=== PATIENT | female | born 1940 | race Caucasian/White ===

== ENCOUNTER 2018-08-08 11:01 | Outpatient (CLI) | payer MEDICARE ==
[2018-08-08 12:10] LABS: PTT 33.2 SEC (22.9-36.1); Prothrombin Time 13.4 SEC (12.0-14.7)
[2018-08-08 12:17] LABS: Hemoglobin 13.7 g/dL (12.0-16.0); Mean Corpuscular HGB CONC 33.4 g/dL (32.0-36.0); Mean Corpuscular Hemoglobin 32.8 pg (27.0-31.0); Mean Corpuscular Volume 98.2 fL (78.0-98.0); Mean Platelet Volume 10.4 fL (7.4-10.4); Platelet Count 161 thou/uL (130-400); RBC Distribution Width 11.8 % (11.5-14.5); Red Blood Cell (RBC) Count 4.19 mill/uL (4.20-5.40); White Blood Cell (WBC) Count 6.8 thou/uL (4.8-10.8)
[2018-08-08 12:18] LABS: Anion Gap 14 mmol/L (10-20); BUN (Urea Nitrogen) 27 mg/dL (9.8-20.1); Calc. Creatinine Clearance 0 mL/min (70-130); Calcium 9.6 mg/dL (7.8-10.44); Carbon Dioxide 25 mmol/L (23-31); Chloride 104 mmol/L (98-107); Estimated GFR-MDRD 55; Glucose 98 mg/dL (83-110); Potassium 3.8 mmol/L (3.5-5.1); Sodium 139 mmol/L (136-145)
== END 2018-08-08 11:02 | disposition home or self-care (01) ==
LOC: LABBT 11:01
PROVIDERS: ATTEND Surgery
DX: Z01.818 Encounter for other preprocedural examination (principal); M48.061 Spinal stenosis, lumbar region without neurogenic claudication; M54.16 Radiculopathy, lumbar region
CPT/HCPCS: 80048; 85027; 85610; 85730; 93005; 93010

== ENCOUNTER 2019-05-30 22:10 | Inpatient (IN) | payer MEDICARE ==
[2019-05-31] MEDS ORDERED: Heparin 10,000 UNITS/ 10 ML VIAL SLOW IVP SCH (01:30)
[2019-05-31 01:49] VITALS: BMI 25.3
[2019-05-31 02:29] LABS: Hemoglobin 13.3 g/dL (12.0-16.0); Platelet Count 162 thou/uL (130-400)
[2019-05-31 02:34] LABS: PTT 28.9 SEC (22.9-36.1); Prothrombin Time 13.3 SEC (12.0-14.7)
[2019-05-31 02:50] LABS: ALT (SGPT) 13 U/L (8-55); AST (SGOT) 19 U/L (5-34); Albumin 3.5 g/dL (3.4-4.8); Alkaline Phosphatase 75 U/L (40-110); Anion Gap 12 mmol/L (10-20); BUN (Urea Nitrogen) 19 mg/dL (9.8-20.1); Bilirubin, Total 0.5 mg/dL (0.2-1.2); Calc. Creatinine Clearance 63 mL/min (70-130); Carbon Dioxide 27 mmol/L (23-31); Chloride 104 mmol/L (98-107); Estimated GFR-MDRD 65; Globulin 2.8 g/dL (2.4-3.5); Glucose 95 mg/dL (83-110); Potassium 3.4 mmol/L (3.5-5.1); Protein, Total 6.3 g/dL (6.0-8.3); Sodium 140 mmol/L (136-145)
[2019-05-31] MEDS: Heparin 25,000 units/D5W 500 ML IVPB SCH (02:52)
[2019-05-31] MEDS ORDERED: ALPRAZolam 0.5 MG TAB PO PRN (06:30)
[2019-05-31] MEDS ORDERED: ALPRAZolam 0.25 MG TAB PO PRN (06:37)
[2019-05-31] MEDS: traMADol HCl 50 MG TAB PO PRN ×2 (06:43→14:30)
[2019-05-31] MEDS: NS 0.9% w/ 20 MEQ KCL 1,000 ML/1,000 ML BAG IV SCH ×4 (06:44→16:50)
[2019-05-31] MEDS: Aspirin 81 mg Enteric Coated Tablet PO SCH (07:50)
[2019-05-31] MEDS: Carvedilol 3.125 MG TAB PO SCH ×2 (07:50→16:19)
--- NOTE | 2019-05-31 08:01 | CON ---
DATE OF CONSULTATION: 05/31/2019 HISTORY OF PRESENT ILLNESS: Ms. Azar is a 78-year-old woman, who was transferred from the [place] [facility]. She has known longstanding peripheral vascular disease. She presented with a left leg and foot rest pain. This had presented approximately 3 to 4 days previous and it gotten worse over time. She was worried that she may "have a clot." She was evaluated in [place] with a CT angiogram. This has shown iliofemoral disease on the left, which is certainly contributing to her symptomatology. She does have a history of atrial fibrillation, but looking at her CT angiogram it is heavily calcified throughout and this is probably a chronic issue that has slowly worsened from an inflow standpoint. She was placed on a heparin drip and is currently asymptomatic. She continues to smoke and has really no intention to stop. PAST MEDICAL HISTORY: 1. Peripheral vascular disease. 2. Anxiety. 3. Atrial fibrillation. 4. Arthritis. 5. Hypertension. 6. Raynaud's phenomenon. 7. Sick sinus syndrome. 8. COPD. 9. Chronic back pain. PAST SURGICAL HISTORY: 1. Pacemaker. 2. Ovarian cyst removal. SOCIAL HISTORY: She smokes approximately half pack of cigarettes a day. REVIEW OF SYSTEMS: Ten-point review of systems is performed and is negative except as above. PHYSICAL EXAMINATION: GENERAL: This is a well-developed, well-nourished woman, resting comfortably. VITAL SIGNS: Her height is 5 feet and 7 inches, weight is 161 pounds. Temperature is 98.1, pulse is 59 and regular, and blood pressure is 149/71. HEENT: Sclerae are nonicteric. Pupils are equal and round bilaterally. NECK: Supple without adenopathy. I cannot auscultate a bruit. CHEST: Clear bilaterally. ABDOMEN: Soft and nontender. EXTREMITIES: There is no edema. Both extremities are pale. She does have capillary refill at about 2 seconds on the right and 4 seconds on the left. VASCULAR: The right common femoral pulse is palpable. She has a good dorsalis pedis monophasic signal on the right. On the left, I cannot palpate a femoral pulse. She does have a monophasic Doppler signal in the femoral and posterior tibial areas. ASSESSMENT AND PLAN: Chronic peripheral vascular disease with acute exacerbation. Her symptomatology has been settled with a heparin drip. We will continue this. Dr. Diallo has evaluated her films and has made plans to perform femoral endarterectomy and iliac stenting on Sunday. Job ID: [id number]
--- NOTE | 2019-05-31 18:41 | HP ---
PRIMARY CARE PHYSICIAN: Dr. Néstor Carbajal. CHIEF COMPLAINT: Left leg pain and claudication. HISTORY OF PRESENT ILLNESS: Ms. Azar is a 78-year-old female with past medical history of peripheral vascular disease, atrial fibrillation, hypertension, sick sinus syndrome, COPD, chronic back pain, presented to the [place] ED late last night due to worsening leg pain over the last 2 days, she states that the left leg and foot became quite painful and throbbing over the last 2 days. She states that it is worse when she is up and walking, she underwent a CT angiogram, which showed iliofemoral disease on the left, she was started on a heparin drip and transferred to [facility] for further management, Dr. Diallo was then consulted. Dr. Diallo was planning for femoral endarterectomy and iliac stenting on Sunday. Currently, the patient denies any fever, chills, headache, blurred vision, dizziness, chest pain, palpitations, shortness of breath, abdominal pain, nausea, or vomiting. Currently, the pain is much improved, but the patient really has not been up and walking around since coming into the ED. REVIEW OF SYSTEMS: All other systems reviewed and found to be negative unless mentioned in HPI. PAST MEDICAL HISTORY: Peripheral vascular disease, atrial fibrillation, arthritis, hypertension, Raynaud syndrome, sick sinus syndrome, COPD, and chronic back pain. PAST SURGICAL HISTORY: Pacemaker placement with AICD, ovarian cyst removed, IR myelogram lumbar spine. PSYCHIATRIC HISTORY: Includes anxiety. SOCIAL HISTORY: The patient denies alcohol or illicit drug use, however, does admit to smoking about a half pack per day. KNOWN ALLERGIES: Adhesive, penicillin, statins, and sulfa. CURRENT HOME MEDICATIONS: 1. Albuterol sulfate 2.5 mg neb q.6 hours as needed for shortness of breath. 2. Budesonide/formoterol 2 puffs inhalation b.i.d. 3. Carvedilol 3.125 mg b.i.d. 4. Docusate 100 mg b.i.d. 5. Ipratropium bromide 2.5 mL nebulized t.i.d. as needed for shortness of breath. 6. Lactulose 10 g p.o. b.i.d. as needed for constipation. 7. Xyzal 5 mg p.o. p.r.n. allergies. 8. Lidocaine 5% patch 1 patch transdermal daily as needed for back pain. 9. Montelukast 10 mg daily. 10. Centrum Silver Multivitamin daily. 11. [place]-3 fatty acid/fish oil 1000 mg daily. 12. Xarelto 15 mg daily. 13. Simethicone 180 mg b.i.d. 14. Alprazolam 0.25 mg as needed for anxiety. 15. Furosemide 40 mg b.i.d. 16. Potassium chloride 20 mEq b.i.d. 17. Tramadol 50 mg q.12 hours as needed for pain. PHYSICAL EXAMINATION: VITAL SIGNS: Blood pressure 135/80, pulse 71, respirations 18, temperature 98.3, O2 saturation 99% on room air. GENERAL: The patient is awake, alert, and oriented x3. She is currently lying comfortably in bed and in no acute distress. HEENT: Atraumatic, normocephalic. Pupils are round and reactive to light. Extraocular muscles intact. Moist mucous membranes noted. NECK: Soft and supple. Trachea midline. CARDIOVASCULAR: Positive S1 and S2. Regular rate and rhythm. No murmur auscultated. RESPIRATORY: Clear to auscultation bilaterally. No wheezes, rales, or rhonchi. ABDOMEN: Soft, nontender. Bowel sounds present. EXTREMITIES: No edema noted. Both extremities are pale. Pedal pulses are 2+ on the right and 4+ on the left. NEUROLOGIC: Cranial nerves 2 through 12 grossly intact. No focal deficits noted. Speech intact and normal. Gait not assessed. SKIN: Warm, dry and intact. PSYCHIATRIC: Good mood and affect. LABORATORY DATA: Hemoglobin 13.3, hematocrit 38.7, and platelet 162. PT 13.3, INR 1.0, and PTT 77.8. Sodium 140, potassium 3.4, anion gap 12, BUN 19, creatinine 0.84, estimated GFR 65, glucose 95, magnesium 2.2, AST 19, and ALT 13. DIAGNOSTIC IMAGING: None. ASSESSMENT AND PLAN: 1. Chronic peripheral vascular disease with acute exacerbation. Dr. Diallo is consulted at this time and plans for a left femoral endarterectomy with iliac stenting on Sunday. The patient will be treated with an IV heparin drip . Hemoglobin and platelets will be closely monitored. 2. History of hypertension. Continue home regimen and monitor blood pressure and other vital signs closely. 3. History of atrial fibrillation. 4. History of sick sinus syndrome with pacemaker and automatic implantable cardioverter-defibrillator in place. 5. History of chronic obstructive pulmonary disease, continue home regimen, currently stable at this time. 6. Chronic back pain, continue home pain regimen. 7. Deep venous thrombosis and gastrointestinal prophylaxis. 8. Code status, full code. 9. Surrogate decision maker is her , Krishna. Disposition pending further workup, clinical findings, and her surgery with Dr. Diallo on Sunday. Job ID: [id number]
[2019-05-31] MEDS: Furosemide 40 MG TAB PO SCH (20:34)
[2019-05-31] MEDS: Potassium Chloride 20 MEQ TAB PO SCH (20:34)
[2019-05-31] MEDS ORDERED: FLU VACC TS2019-20(65YR UP)/PF 180 MCG/0.5 ML SYRINGE IM ONE (21:00)
[2019-06-01 03:44] LABS: #Basophils 0.1 thou/uL (0.0-0.2); #Eosinphils 0.7 thou/uL (0.0-0.7); #Lymphocytes 2.6 thou/uL (1.20-3.40); #Monocytes 0.6 thou/uL (0.11-0.59); #Neutrophils 3.2 thou/uL (1.40-6.50); %Basophils 1.1 % (0.0-1.0); %Eosinophils 9.4 % (0.0-10.0); %Lymphocytes 36.4 % (21.0-51.0); %Monocytes 8.1 % (0.0-10.0); Hemoglobin 12.9 g/dL (12.0-16.0); Mean Corpuscular HGB CONC 33.9 g/dL (32.0-36.0); Mean Corpuscular Hemoglobin 33.5 pg (27.0-31.0); Mean Platelet Volume 9.7 fL (7.4-10.4); Platelet Count 202 thou/uL (130-400); RBC Distribution Width 11.9 % (11.5-14.5); Red Blood Cell (RBC) Count 3.86 mill/uL (4.20-5.40); White Blood Cell (WBC) Count 7.2 thou/uL (4.8-10.8)
[2019-06-01] MEDS: Heparin 25,000 units/D5W 500 ML IVPB SCH (03:50)
[2019-06-01 04:07] LABS: Anion Gap 10 mmol/L (10-20); BUN (Urea Nitrogen) 16 mg/dL (9.8-20.1); Calc. Creatinine Clearance 55 mL/min (70-130); Calcium 8.7 mg/dL (7.8-10.44); Carbon Dioxide 28 mmol/L (23-31); Chloride 107 mmol/L (98-107); Estimated GFR-MDRD 56; Glucose 91 mg/dL (83-110); Magnesium 2.1 mg/dL (1.6-2.6); Potassium 3.5 mmol/L (3.5-5.1); Sodium 141 mmol/L (136-145)
[2019-06-01] MEDS: NS 0.9% w/ 20 MEQ KCL 1,000 ML/1,000 ML BAG IV SCH ×2 (07:12→19:28)
[2019-06-01] MEDS: Aspirin 81 mg Enteric Coated Tablet PO SCH (07:48)
[2019-06-01] MEDS: traMADol HCl 50 MG TAB PO PRN ×2 (07:48→16:21)
[2019-06-01] MEDS: Furosemide 40 MG TAB PO SCH ×2 (07:50→20:17)
[2019-06-01] MEDS: Carvedilol 3.125 MG TAB PO SCH ×2 (07:50→16:21)
[2019-06-01] MEDS: Potassium Chloride 20 MEQ TAB PO SCH ×2 (07:50→20:17)
--- NOTE | 2019-06-01 18:50 | PDOC.HOSPP ---
- Subjective Encounter Date: 06/01/19 Encounter Time: 18:48 Subjective: Pt seen for followup re: limb ischemia. Reports LLE pain is better. - Objective Vital Signs & Weight: Vital Signs (12 hours) Temp Pulse Resp BP Pulse Ox 06/01/19 15:05 98.1 F 60 16 140/63 98 06/01/19 11:18 98.1 F 60 16 165/81 H 97 06/01/19 07:32 98.0 F 60 16 158/85 H 98 Weight Weight 161 lb 12.8 oz I&O: 05/31/19 06/01/19 06/02/19 06:59 06:59 06:59 Intake Total 3180 1440 Balance 3180 1440 Result Diagrams: 06/01/19 03:04 06/01/19 03:04 Additional Labs: Labs and MARs reviewed by co Hospitalist ROS - Review of Systems Cardiovascular: reports: other. denies: chest pain, palpitations, orthopnea, paroxysmal noc. dyspnea, edema, light headedness Gastrointestinal: denies: nausea, vomiting, abdominal pain, diarrhea, constipation, melena, hematochezia Musculoskeletal: reports: leg pain - Medication Medications: Active Medications Generic Name Dose Route Start Last Admin Trade Name Freq PRN Reason Stop Dose Admin Alprazolam 0.25 mg 05/31/19 06:37 05/31/19 06:45 Xanax PO 0.25 mg Q8H PRN Administration Anxiety Aspirin 81 mg 05/31/19 09:00 06/01/19 07:48 Ecotrin PO 81 mg DAILY ELIAN Administration Carvedilol 3.125 mg 05/31/19 08:00 06/01/19 16:21 Coreg PO 3.125 mg BID-WM ELIAN Administration Furosemide 40 mg 05/31/19 21:00 06/01/19 07:50 Lasix PO 40 mg BID ELIAN Administration Heparin Sodium/Dextrose 500 mls @ 0 mls/hr 05/31/19 01:30 06/01/19 03:50 Heparin 25,000 Units/D5w 500 Ml IVPB 500 mls INF ELIAN Administration Protocol Per Protocol Potassium Chloride/Sodium Chloride 1,000 ml in 1,000 mls @ 75 mls/hr 05/31/19 05:00 06/01/19 07:12 Ns 0.9% W/ 20 Meq Kcl IV Not Given .[id number] ELIAN Potassium Chloride 20 meq 05/31/19 21:00 06/01/19 07:50 K-Dur PO 20 meq BID ELIAN Administration Sodium Chloride 10 ml 05/31/19 09:00 06/01/19 07:51 Flush - Normal Saline IVF Not Given Q12HR ELIAN Tramadol HCl 50 mg 05/31/19 06:29 06/01/19 16:21 Ultram PO 50 mg Q6H PRN Administration Pain - Exam General Appearance: NAD Eye: anicteric sclera ENT: moist mucosa Neck: supple Heart: RRR Respiratory: CTAB, no rales Gastrointestinal: soft, non-tender Skin - other findings: poor pulses LLE Psychiatric: normal affect, normal behavior Hosp A/P (1) Limb ischemia Code(s): I99.8 - OTHER DISORDER OF CIRCULATORY SYSTEM Status: Acute (2) HTN (hypertension) Code(s): I10 - ESSENTIAL (PRIMARY) HYPERTENSION Status: Chronic (3) COPD (chronic obstructive pulmonary disease) Status: Chronic (4) Sick sinus syndrome Code(s): I49.5 - SICK SINUS SYNDROME Status: Chronic - Plan out of bed/ambulate On heparin drip, for procedure tomorrow. Monitor vital signs, titrate antihypertensives as needed. s/p PPM placement.
[2019-06-02] MEDS ORDERED: Sodium Chloride 0.9% 1,000 ML IV SCH (02:00)
[2019-06-02 02:32] LABS: Hemoglobin 12.7 g/dL (12.0-16.0); Platelet Count 203 thou/uL (130-400)
[2019-06-02 02:33] LABS: #Basophils 0.1 thou/uL (0.0-0.2); #Eosinphils 0.6 thou/uL (0.0-0.7); #Lymphocytes 1.9 thou/uL (1.20-3.40); #Monocytes 0.4 thou/uL (0.11-0.59); #Neutrophils 2.9 thou/uL (1.40-6.50); %Basophils 0.9 % (0.0-1.0); %Eosinophils 9.9 % (0.0-10.0); %Lymphocytes 32.1 % (21.0-51.0); %Monocytes 7.6 % (0.0-10.0); %Neutrophils 49.5 % (42.0-75.0); Hemoglobin 12.8 g/dL (12.0-16.0); Mean Corpuscular HGB CONC 34.1 g/dL (32.0-36.0); Mean Corpuscular Hemoglobin 33.8 pg (27.0-31.0); Mean Corpuscular Volume 99.1 fL (78.0-98.0); Platelet Count 209 thou/uL (130-400); RBC Distribution Width 11.9 % (11.5-14.5); Red Blood Cell (RBC) Count 3.78 mill/uL (4.20-5.40); White Blood Cell (WBC) Count 5.8 thou/uL (4.8-10.8)
[2019-06-02 02:55] LABS: Anion Gap 14 mmol/L (10-20); BUN (Urea Nitrogen) 17 mg/dL (9.8-20.1); Calc. Creatinine Clearance 52 mL/min (70-130); Calcium 8.7 mg/dL (7.8-10.44); Carbon Dioxide 25 mmol/L (23-31); Chloride 105 mmol/L (98-107); Estimated GFR-MDRD 52; Glucose 90 mg/dL (83-110); Potassium 3.7 mmol/L (3.5-5.1); Sodium 140 mmol/L (136-145)
[2019-06-02] MEDS: Carvedilol 3.125 MG TAB PO SCH ×2 (06:07→17:34)
[2019-06-02] MEDS: traMADol HCl 50 MG TAB PO PRN ×2 (06:07→17:33)
[2019-06-02] MEDS ORDERED: Protamine Sulfate 250 MG/25 ML VIAL ONE (06:40)
[2019-06-02] MEDS ORDERED: Heparin 5,000 UNITS/ML VIAL ONE (06:40)
[2019-06-02] MEDS ORDERED: Protamine Sulfate 50 MG/5 ML VIAL ONE (06:41)
[2019-06-02] MEDS ORDERED: Nitroglycerin 50 MG/250 ML BOT 0 ML ONE (06:44)
[2019-06-02] MEDS ORDERED: PHENYLEPHRINE-NS 100 MCG/ML 10 ML SYRINGE ONE ×2 (06:44→14:43)
[2019-06-02] MEDS: Aspirin 81 mg Enteric Coated Tablet PO SCH (07:31)
[2019-06-02] MEDS: Furosemide 40 MG TAB PO SCH (07:31)
[2019-06-02] MEDS: Potassium Chloride 20 MEQ TAB PO SCH (07:31)
[2019-06-02] MEDS ORDERED: Clindamycin/D5W 900 mg/50 ml Premix Bag ONE (08:51)
[2019-06-02] MEDS ORDERED: Levofloxacin 500 mg/D5W 100 ml Premix Bag ONE (08:52)
[2019-06-02] MEDS ORDERED: Fentanyl 100 MCG/2 ML VIAL ONE ×4 (09:11→15:50)
[2019-06-02] MEDS ORDERED: Phenylephrine HCL 10 MG/ML VIAL ONE ×2 (09:12→10:42)
[2019-06-02] MEDS ORDERED: Norepinephrine 4 MG/4 ML VIAL ONE (09:12)
[2019-06-02] MEDS ORDERED: Clindamycin/D5W 900 MG in Premix Bag 1 BAG IVPB SCH (10:00)
[2019-06-02] MEDS ORDERED: Heparin 10,000 UNITS/1 ML VIAL ONE (11:16)
[2019-06-02] MEDS ORDERED: hydrALAZINE 20 MG/ML VIAL SLOW IVP PRN (12:49)
[2019-06-02] MEDS ORDERED: Promethazine HCl 25 MG/ML VIAL ONE (13:16)
[2019-06-02] MEDS ORDERED: Fentanyl 100 MCG/2 ML VIAL SLOW IVP PRN (14:32)
[2019-06-02] MEDS ORDERED: hydrALAZINE 20 MG/ML VIAL ONE (14:32)
[2019-06-02] MEDS ORDERED: HYDROcodone/Acetaminophen 5/325 mg Tablet PO PRN (14:32)
[2019-06-02] MEDS ORDERED: Lidocaine 1% PF 5 ML VIAL ONE (14:43)
[2019-06-02] MEDS ORDERED: Heparin 10,000 UNITS/ 10 ML VIAL ONE (14:43)
[2019-06-02] MEDS ORDERED: Labetalol HCl 100 MG/20 ML VIAL ONE (14:43)
[2019-06-02] MEDS ORDERED: ePHEDrine 50 MG/ML VIAL ONE (14:43)
[2019-06-02] MEDS ORDERED: Rocuronium Bromide 10 MG/ML (10ML VIAL) ONE (14:43)
[2019-06-02] MEDS ORDERED: Ondansetron PF 4 MG/2 ML Vial ONE (14:43)
[2019-06-02] MEDS ORDERED: Dexamethasone 20 MG/5 ML VIAL ONE (14:43)
[2019-06-02] MEDS ORDERED: Glycopyrrolate 0.2 MG/ML 5 ML SYRINGE ONE (14:43)
[2019-06-02] MEDS ORDERED: PROPOFOL 200 MG/20 ML VIAL ONE (14:43)
[2019-06-02] MEDS ORDERED: Promethazine HCl 25 MG/ML VIAL SLOW IVP PRN (15:07)
[2019-06-02] MEDS ORDERED: Ondansetron HCl/PF 4 MG/2 ML Vial IVP PRN (15:07)
[2019-06-02] MEDS ORDERED: Promethazine HCl 25 MG/ML VIAL IM PRN (15:07)
[2019-06-02] MEDS: HYDROcodone/Acetaminophen 5/325 mg Tablet PO PRN ×2 (18:13→22:11)
--- NOTE | 2019-06-02 18:24 | PDOC.HOSPP ---
- Subjective Encounter Date: 06/02/19 Encounter Time: 09:00 Subjective: Pt seen for followup re: limb ischemia. Leg pain is better. - Objective Vital Signs & Weight: Vital Signs (12 hours) Temp Pulse Resp BP Pulse Ox 06/02/19 16:25 97.9 F 61 16 134/70 95 06/02/19 07:39 97.9 F 61 19 129/79 95 Weight Weight 161 lb 12.8 oz I&O: 06/01/19 06/02/19 06/03/19 06:59 06:59 06:59 Intake Total 3180 1440 719.2 Output Total 150 Balance 3180 1440 569.2 Result Diagrams: 06/02/19 02:17 06/02/19 02:17 Additional Labs: Labs and MARs reviewed by [place] Hospitalist ROS - Review of Systems Respiratory: denies: cough, dry, shortness of breath, hemoptysis, SOB with excertion, pleuritic pain, sputum, wheezing Cardiovascular: denies: chest pain, palpitations, orthopnea, paroxysmal noc. dyspnea, edema, light headedness Musculoskeletal: reports: leg pain - Medication Medications: Active Medications Generic Name Dose Route Start Last Admin Trade Name Freq PRN Reason Stop Dose Admin Hydrocodone Bitart/Acetaminophen 1 tab 06/02/19 14:32 06/02/19 18:13 [place] 5/325 PO 1 tab Q4H PRN Administration Pain Alprazolam 0.25 mg 05/31/19 06:37 05/31/19 06:45 Xanax PO 0.25 mg Q8H PRN Administration Anxiety Aspirin 81 mg 05/31/19 09:00 06/02/19 07:31 Ecotrin PO Not Given DAILY ELIAN Carvedilol 3.125 mg 05/31/19 08:00 06/02/19 17:34 Coreg PO 3.125 mg BID-WM ELIAN Administration Sodium Chloride 1,000 mls @ 50 mls/hr 06/02/19 02:00 06/02/19 02:32 Normal Saline 0.9% IV 06/02/19 21:59 1,000 mls .Q20H ELIAN Administration Sodium Chloride 10 ml 05/31/19 09:00 06/02/19 07:31 Flush - Normal Saline IVF Not Given Q12HR ELIAN Tramadol HCl 50 mg 05/31/19 06:29 06/02/19 17:33 Ultram PO 50 mg Q6H PRN Administration Pain - Exam General Appearance: NAD Eye: anicteric sclera ENT: moist mucosa Neck: supple Heart: RRR Respiratory: CTAB, no wheezes Gastrointestinal: soft, non-tender Musculoskeletal: no muscle wasting Psychiatric: normal affect, normal behavior Hosp A/P (1) Limb ischemia Code(s): I99.8 - OTHER DISORDER OF CIRCULATORY SYSTEM Status: Acute (2) HTN (hypertension) Code(s): I10 - ESSENTIAL (PRIMARY) HYPERTENSION Status: Chronic (3) COPD (chronic obstructive pulmonary disease) Status: Chronic (4) Sick sinus syndrome Code(s): I49.5 - SICK SINUS SYNDROME Status: Chronic - Plan For CV surgery procedure today. HTN controlled. s/p PPM placement.
[2019-06-03] MEDS: HYDROcodone/Acetaminophen 5/325 mg Tablet PO PRN ×3 (05:17→20:40)
--- NOTE | 2019-06-03 08:24 | OP ---
DATE OF PROCEDURE: 06/02/2019 PREOPERATIVE DIAGNOSIS: Ischemic rest pain, left foot. POSTOPERATIVE DIAGNOSIS: Ischemic rest pain, left foot. PROCEDURES PERFORMED: Left common femoral endarterectomy with pericardial patch angioplasty and intraoperative stent placement in the left external iliac artery using a 6 x 60 stent posted with 5 mm balloon. DESCRIPTION OF PROCEDURE: After adequate anesthesia had been obtained, ultrasound was used to guide in the incision, and after prepping and draping, an incision was made in the left groin. Carried down through the subcutaneous tissues. There was no palpable pulse, but the common femoral artery was identified and the origins of bifurcating deep femoral artery were controlled. Following this, dissection was then carried up under the inguinal ligament proximal to the circumflex femoral vessels. Circumflex femoral vessels were controlled with ties and not divided. After 7500 units of heparin, needle was inserted into the proximal most common femoral artery and a guidewire advanced under fluoroscopy. A 7-[place] dilator and sheath were placed, following which angiography was done showing a high-grade stenosis at the origin of the left external iliac artery and then more moderate stenosis more distally. A 6 x 60 stent was then deployed riding slightly high proximally. It was posted with 5 mm balloon. Completion angiography showed a good result proximally. Distally, there was about a 50% stenosis. However, I was concerned about stenting it intraoperatively due to the need for a clamp being placed in the distal left external iliac artery and the chance that I might clamp the stent if another stent was overriding the current one. For this reason, the sheath and wire were removed. Clamp applied to the external and profunda femoral artery and sutures pulled up on the branch vessels. Arteriotomy was performed and there was some thrombus in the common femoral artery suggesting that it had thrombosed from high-grade stenosis. Endarterectomy was performed with a nice tapering in the profunda femoral branches and reasonably good tapering proximally. A bovine patch was then used to close the arteriotomy with a running 6-0 Prolene suture. Flow was then restored. Following which, protamine was given systemically and hemostasis obtained. Wounds were then closed with [id number] interrupted Vicryl sutures, two layers in this skin were then closed, and the patient was taken to the recovery room with pink foot. Job ID: [id number]
[2019-06-03] MEDS: Aspirin 81 mg Enteric Coated Tablet PO SCH (08:35)
[2019-06-03] MEDS: Polyethylene Glycol 3350 17 GM Packet PO SCH (08:35)
[2019-06-03] MEDS: Carvedilol 3.125 MG TAB PO SCH ×2 (08:35→18:46)
[2019-06-03] MEDS ORDERED: Clopidogrel Bisulfate 75 MG TAB PO SCH (09:00)
[2019-06-03] MEDS ORDERED: FLU VACC TS2019-20(65YR UP)/PF 180 MCG/0.5 ML SYRINGE IM ONE (09:00)
[2019-06-03 10:35] LABS: #Eosinphils 0.3 thou/uL (0.0-0.7); #Lymphocytes 1.6 thou/uL (1.20-3.40); #Monocytes 0.8 thou/uL (0.11-0.59); #Neutrophils 6.4 thou/uL (1.40-6.50); %Basophils 0.1 % (0.0-1.0); %Eosinophils 2.9 % (0.0-10.0); %Lymphocytes 17.7 % (21.0-51.0); %Monocytes 8.4 % (0.0-10.0); %Neutrophils 70.8 % (42.0-75.0); Hemoglobin 12.9 g/dL (12.0-16.0); Mean Corpuscular Hemoglobin 33.4 pg (27.0-31.0); Mean Platelet Volume 9.4 fL (7.4-10.4); Platelet Count 201 thou/uL (130-400); Red Blood Cell (RBC) Count 3.86 mill/uL (4.20-5.40)
[2019-06-03 10:58] LABS: Anion Gap 15 mmol/L (10-20); BUN (Urea Nitrogen) 14 mg/dL (9.8-20.1); Calc. Creatinine Clearance 47 mL/min (70-130); Carbon Dioxide 26 mmol/L (23-31); Chloride 102 mmol/L (98-107); Estimated GFR-MDRD 47; Glucose 75 mg/dL (83-110); Potassium 3.7 mmol/L (3.5-5.1); Sodium 139 mmol/L (136-145)
[2019-06-03] MEDS: traMADol HCl 50 MG TAB PO PRN (13:31)
--- NOTE | 2019-06-03 14:17 | PDOC.HOSPP ---
- Subjective Encounter Date: 06/03/19 Encounter Time: 08:20 Subjective: Pt seen for followup re: ischemic limb. Feels better. Slept well. - Objective Vital Signs & Weight: Vital Signs (12 hours) Temp Pulse Resp BP Pulse Ox 06/03/19 11:40 98.1 F 59 L 14 120/63 94 L 06/03/19 07:48 97.5 F L 60 10 L 143/65 H 95 06/03/19 03:28 98.1 F 60 16 113/58 L 93 L Weight Weight 161 lb 12.8 oz I&O: 06/02/19 06/03/19 06/04/19 06:59 06:59 06:59 Intake Total 1440 1669.2 Output Total 1050 Balance 1440 619.2 Result Diagrams: 06/03/19 10:17 06/03/19 10:17 Additional Labs: Labs and MARs reviewed by nm Hospitalist ROS - Review of Systems Cardiovascular: denies: chest pain, palpitations, orthopnea, paroxysmal noc. dyspnea, edema, light headedness Gastrointestinal: denies: nausea, vomiting, abdominal pain, diarrhea, constipation, melena, hematochezia - Medication Medications: Active Medications Generic Name Dose Route Start Last Admin Trade Name Freq PRN Reason Stop Dose Admin Hydrocodone Bitart/Acetaminophen 1 tab 06/02/19 14:32 06/03/19 10:34 [place] 5/325 PO 1 tab Q4H PRN Administration Pain Alprazolam 0.25 mg 05/31/19 06:37 05/31/19 06:45 Xanax PO 0.25 mg Q8H PRN Administration Anxiety Aspirin 81 mg 05/31/19 09:00 06/03/19 08:35 Ecotrin PO 81 mg DAILY ELIAN Administration Carvedilol 3.125 mg 05/31/19 08:00 06/03/19 08:35 Coreg PO 3.125 mg BID-WM ELIAN Administration Polyethylene Glycol 17 gm 06/03/19 09:00 06/03/19 08:35 Miralax PO 17 gm DAILY ELIAN Administration Sodium Chloride 10 ml 05/31/19 09:00 06/03/19 08:38 Flush - Normal Saline IVF 10 ml Q12HR ELIAN Administration Tramadol HCl 50 mg 05/31/19 06:29 06/03/19 13:31 Ultram PO 50 mg Q6H PRN Administration Pain - Exam General Appearance: NAD, awake alert Eye: anicteric sclera Neck: supple, symmetric Heart: RRR Respiratory: CTAB, no rales Gastrointestinal: soft, non-tender Extremities: no clubbing Neurological: no weakness Psychiatric: normal affect, normal behavior Hosp A/P (1) Limb ischemia Code(s): I99.8 - OTHER DISORDER OF CIRCULATORY SYSTEM Status: Acute (2) HTN (hypertension) Code(s): I10 - ESSENTIAL (PRIMARY) HYPERTENSION Status: Chronic (3) COPD (chronic obstructive pulmonary disease) Status: Chronic (4) Sick sinus syndrome Code(s): I49.5 - SICK SINUS SYNDROME Status: Chronic - Plan PT/OT, out of bed/ambulate s/p femoral endarterectomy yesterday. HTN controlled. s/p PPM placement. Ambulate pt. Likely home tomorrow.
[2019-06-03] MEDS ORDERED: Rivaroxaban 15 MG TAB PO SCH (18:00)
[2019-06-04 05:12] LABS: #Eosinphils 0.5 thou/uL (0.0-0.7); #Lymphocytes 1.6 thou/uL (1.20-3.40); #Monocytes 0.7 thou/uL (0.11-0.59); %Basophils 0.4 % (0.0-1.0); %Eosinophils 6.5 % (0.0-10.0); %Lymphocytes 20.4 % (21.0-51.0); %Monocytes 8.7 % (0.0-10.0); Hemoglobin 12.8 g/dL (12.0-16.0); Mean Corpuscular HGB CONC 33.4 g/dL (32.0-36.0); Mean Corpuscular Hemoglobin 33.1 pg (27.0-31.0); Mean Corpuscular Volume 99.1 fL (78.0-98.0); Mean Platelet Volume 8.8 fL (7.4-10.4); Platelet Count 181 thou/uL (130-400); RBC Distribution Width 11.9 % (11.5-14.5); Red Blood Cell (RBC) Count 3.86 mill/uL (4.20-5.40); White Blood Cell (WBC) Count 7.8 thou/uL (4.8-10.8)
[2019-06-04 05:27] LABS: Anion Gap 10 mmol/L (10-20); BUN (Urea Nitrogen) 14 mg/dL (9.8-20.1); Calc. Creatinine Clearance 56 mL/min (70-130); Calcium 8.8 mg/dL (7.8-10.44); Carbon Dioxide 27 mmol/L (23-31); Chloride 106 mmol/L (98-107); Estimated GFR-MDRD 57; Glucose 94 mg/dL (83-110); Potassium 3.7 mmol/L (3.5-5.1); Sodium 139 mmol/L (136-145)
[2019-06-04] MEDS: Carvedilol 3.125 MG TAB PO SCH (08:02)
[2019-06-04] MEDS: Polyethylene Glycol 3350 17 GM Packet PO SCH (08:03)
[2019-06-04] MEDS: Aspirin 81 mg Enteric Coated Tablet PO SCH (08:03)
--- NOTE | 2019-06-04 08:35 | DIS ---
DATE OF ADMISSION: 05/31/2019 DATE OF DISCHARGE: 06/04/2019 HOSPITAL COURSE: The patient had new onset of rest pain in her left foot and seen in [facility], transferred here. The patient was placed on IV heparin and taken to the operating room on her third postadmission day where she underwent a left common femoral endarterectomy as well as stenting of her external iliac artery. She had one residual 50% stenosis in the external iliac that was not stented because it was in close proximity to the site where the external iliac artery would have to be clamped for the endarterectomy. Postoperatively, she had a Doppler signal in her foot and no longer had rest pain. The foot was pink and warm, contrast to pale prior to surgery. She will be discharged to home to resume her home medications. No prescriptions have been written. Job ID: [id number]
[2019-06-04 08:44] VITALS: BP 130/69; TEMP 98.2
[2019-06-04] MEDS: traMADol HCl 50 MG TAB PO PRN (09:09)
--- NOTE | 2019-06-05 02:19 | DIS ---
DATE OF ADMISSION: 05/31/2019 DATE OF DISCHARGE: 06/04/2019 PRIMARY CARE PROVIDER: Dr. Néstor Carbajal. DISCHARGE DIAGNOSES: 1. Limb ischemia. 2. Hypokalemia. CONDITION OF PATIENT ON THE DAY OF DISCHARGE: Stable. I assessed Ms. Azar on the day of discharge. She denies any chest pain or shortness of breath. Vital signs are stable. S1 and S2 are heard, regular. Lungs are clear to auscultation bilaterally. POSTDISCHARGE FOLLOWUP: With Cardiovascular Surgery, Dr. Diallo in 14 days. HOSPITAL COURSE: Ms. Azar is a pleasant 78-year-old lady who was admitted to [facility] on 05/31/2019, for left lower extremity ischemia. Please refer to Mr. Lal's history and physical note dated 05/31/2019, for further details. She was seen by Cardiovascular Surgery. She underwent left common femoral endarterectomy and external iliac artery stenting. She is being discharged home in a stable condition. Many thanks for allowing me to participate in your patient's care. Please feel free to contact me with any questions or concerns. DISCHARGE DESTINATION: Home. TIME SPENT: Total amount of time spent coordinating this discharge: 12 minutes. Job ID: [id number]
== END 2019-06-04 13:40 | disposition home or self-care (01) | DRG 254 ==
LOC: ERS 22:10 → SJJU 05-31 00:39 → CCU 06-02 09:14 → SJJU 06-02 09:14
PROVIDERS: ADMIT Internal Medicine; ATTEND Internal Medicine
PROC: 04CL0ZZ Extirpation of Matter from Left Femoral Artery, Open Approach (ICD-10-PCS; principal; 2019-06-02)
PROC: 04UL0KZ Supplement Left Femoral Artery with Nonautologous Tissue Substitute, Open Approach (ICD-10-PCS; 2019-06-02)
PROC: 047J3DZ Dilation of Left External Iliac Artery with Intraluminal Device, Percutaneous Approach (ICD-10-PCS; 2019-06-02)
DX: I70.222 Atherosclerosis of native arteries of extremities with rest pain, left leg (principal); E87.6 Hypokalemia; F17.210 Nicotine dependence, cigarettes, uncomplicated; I73.00 Raynaud's syndrome without gangrene; F41.9 Anxiety disorder, unspecified; I48.91 Unspecified atrial fibrillation; G89.29 Other chronic pain; I49.5 Sick sinus syndrome; M19.90 Unspecified osteoarthritis, unspecified site; I10 Essential (primary) hypertension; M54.9 Dorsalgia, unspecified; J44.9 Chronic obstructive pulmonary disease, unspecified; Z79.01 Long term (current) use of anticoagulants; Z79.899 Other long term (current) drug therapy; Z95.810 Presence of automatic (implantable) cardiac defibrillator
CPT/HCPCS: 36415; 76000; 80048; 80053; 83735; 85014; 85018; 85025; 85049; 85610; 85730; 90471; 90662; 99284; C1725; G0008; J0360; J1100; J1644; J1956; J2001; J2370; J2405; J2550; J2704; J2720; J3010; J3480; J3490